=== PATIENT | female | born 1970 | race Caucasian/White ===

== ENCOUNTER → 2022-11-21 09:45 | Outpatient (CLI) | payer OTHER, SELFPAY ==
--- NOTE | 2022-11-21 | DI.RAD.S_ITS ---
PROCEDURE: XR LUMBAR SPINE 2-3V INDICATIONS: SCIATICA TECHNIQUE: 3 views of the lumbar spine were acquired. COMPARISON: None. 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 Multilevel disc space narrowing and endplate osteophyte formation. Facet hypertrophy throughout the lumbar spine. There is normal bony alignment. No vertebral body compression fractures. No suspicious bony lesions. Soft tissues: Overlying bowel gas pattern is normal. No suspicious soft tissue calcifications. IMPRESSION: Multilevel degenerative disc and facet disease. No acute fracture. No osseous lesion. If symptoms and/or clinical suspicion for pathology persist, further assessment with repeat, or advanced imaging (e.g., CT, MRI, or bone scan) may be helpful for further assessment. Dictated by: Andrei Sawant M.D. on 11/21/2022 at 11:34 Transcribed by: DINORAH on 11/21/2022 at 11:36 Approved by: Andrei Sawant M.D. on 11/21/2022 at 15:49
--- NOTE | 2022-11-21 | DI.RAD.S_ITS ---
PROCEDURE: XR PELVIS 1-2V INDICATIONS: SCIATICA TECHNIQUE: 1 view(s) of the pelvis acquired. COMPARISON: None. FINDINGS: Bones: No fractures or dislocations. No suspicious bony lesions. Soft tissues: Visualized bowel gas pattern is normal. No suspicious soft tissue calcifications. IMPRESSION: No acute fracture. No osseous lesion. If symptoms and/or clinical suspicion for pathology persist, further assessment with repeat, or advanced imaging (e.g., CT, MRI, or bone scan) may be helpful for further assessment. Dictated by: Andrei Sawant M.D. on 11/21/2022 at 11:34 Transcribed by: DINORAH on 11/21/2022 at 11:34 Approved by: Andrei Sawant M.D. on 11/21/2022 at 15:48
== END ==
PROVIDERS: Referring Provider Chiropractor; Visit Provider Chiropractor
DX: M54.30 Sciatica, unspecified side (principal); M62.81 Muscle weakness (generalized)
CPT/HCPCS: 72100; 72170